=== PATIENT | female | born 1960 | race African-American/Black ===

== ENCOUNTER 2024-07-21 09:23 | Outpatient (CLI) | payer OTHER, SELFPAY ==
--- NOTE | ~2024-07-21 | US_ITS ---
US axilla LT 07/21/2024 09:48 Indication: Palpable left axillary nodule. Procedure: High-resolution ultrasound of the left axilla Comparison: No prior studies for comparison. Findings: There is a lymph node in the left axilla in the area of palpable concern with normal fatty hilum measuring 10 x 7 x 6 mm. No suspicious lymph nodes are identified. Impression: 1: Normal 1 cm left axillary lymph node corresponds to the palpable finding. BI-RADS CATEGORY 1 - NEGATIVE Reviewed, dictated and finalized at location B. Impression: 1: Normal 1 cm left axillary lymph node corresponds to the palpable finding. BI-RADS CATEGORY 1 - NEGATIVE
== END 2024-07-21 09:24 | disposition home or self-care (01) ==
LOC: MICIMG 09:26
DX: N63.31 Unspecified lump in axillary tail of the right breast (principal)
CPT/HCPCS: 76882